=== PATIENT | female | born 1985 | race Caucasian/White ===

== ENCOUNTER 2024-10-01 18:36 | Emergency (ER) | payer SELFPAY ==
[~2024-10-01] VITALS: Ht 170.2 cm; Wt 54.5 kg
[2024-10-01 18:46] VITALS: BP 133/80; TEMP 36.8; O2SAT 100
[2024-10-01 18:52] VITALS: PULSE 96; RESP 18; O2SAT 99
[2024-10-02 00:06] LABS: HEMATOCRIT. 35.9 % (36.0-48.0); HEMOGLOBIN. 10.8 g/dL (12.0-16.0); MEAN CORPUSCULAR HEMOGLOBIN 21.7 pg (28.0-32.0); MEAN CORPUSCULAR HGB CONC 30.2 g/dL (31.0-37.0); MEAN CORPUSCULAR VOLUME 71.7 fL (81.0-99.0); PLATELET 388 x1000/uL (130-400); RED CELL DISTRIBUTION WIDTH 21.9 % (11.6-14.6); WHITE BLOOD COUNT 5.8 x1000/uL (4.5-11.0)
[2024-10-02 00:12] LABS: DIFFERENTIAL COMMENT 1
[2024-10-02 00:17] LABS: CHLORIDE 107 mEq/L (98-107); POTASSIUM 3.6 mEq/L (3.5-5.1); SODIUM 142 mEq/L (136-145)
[2024-10-02 00:18] LABS: CARBON DIOXIDE 28 mEq/L (21-32)
[2024-10-02 00:23] LABS: CREATININE 0.8 mg/dL (0.6-1.0); GLUCOSE 99 mg/dL (70-105); UREA NITROGEN BLOOD 9 mg/dL (9-23)
[2024-10-02 00:48] LABS: TROPONIN I HIGH SENSITIVITY < 4 ng/L (3.0-34)
[2024-10-02] MEDS: ACETAMINOPHEN 325MG TABLET PO ONE (02:20)
[2024-10-02 05:33] LABS: HYPOCHROMASIA 1+; MICROCYTOSIS 1+; PLATELET ESTIMATE NORMAL
== END 2024-10-02 02:31 | disposition home or self-care (01) ==
LOC: ER 18:36
DX: B34.9 Viral infection, unspecified (principal); I48.91 Unspecified atrial fibrillation; Z98.890 Other specified postprocedural states
CPT/HCPCS: 36415; 71045; 80048; 84484; 85025; 93005; 99285